=== PATIENT | female | born 1965 | race Caucasian/White ===

== ENCOUNTER 2019-11-22 23:54 | Emergency (ER) | payer MEDICAID ==
[~2019-11-22] VITALS: Ht 162.6 cm; Wt 115.0 kg
[~2019-11-22 23:54] MED LIST: ACET-3068 PO; ARIP2TAB3 PO; CLON-529 PO; GLYB2.5T59 PO; LEVO75TA57 PO; LISI-222 PO; LOVA10TA56 PO; METF500T PO
[2019-11-23 00:14] VITALS: BP 171/118
[2019-11-23] MEDS ORDERED: silver sulfadiazine cream 400gm jar TP STA (00:28)
[2019-11-23] MEDS ORDERED: silver sulfadiazine cream 50gm TP STA (00:40)
[2019-11-23] MEDS ORDERED: CEPH-572 PO (00:40)
== END 2019-11-23 01:14 | disposition home or self-care (01) ==
LOC: ER 23:55
DX: T24.112A Burn of first degree of left thigh, initial encounter (principal); T22.112A Burn of first degree of left forearm, initial encounter; T31.0 Burns involving less than 10% of body surface; I10 Essential (primary) hypertension; E11.9 Type 2 diabetes mellitus without complications; F15.90 Other stimulant use, unspecified, uncomplicated; F11.90 Opioid use, unspecified, uncomplicated; Z60.2 Problems related to living alone; Z88.8 Allergy status to other drugs, medicaments and biological substances; Z79.84 Long term (current) use of oral hypoglycemic drugs; Z79.899 Other long term (current) drug therapy; X08.8XXA Exposure to other specified smoke, fire and flames, initial encounter; Y93.89 Activity, other specified; Y92.89 Other specified places as the place of occurrence of the external cause; Y99.8 Other external cause status
CPT/HCPCS: 16000; 99284

== ENCOUNTER 2021-06-23 11:54 | Emergency (ER) | payer MEDICAID ==
[~2021-06-23] VITALS: Ht 162.6 cm; Wt 102.2 kg
[2021-06-23 12:35] VITALS: BP 117/67
== END 2021-06-23 15:55 | disposition home or self-care (01) ==
LOC: ER 11:55
DX: S00.83XA Contusion of other part of head, initial encounter (principal); M25.531 Pain in right wrist; M25.532 Pain in left wrist; I10 Essential (primary) hypertension; E11.9 Type 2 diabetes mellitus without complications; F15.90 Other stimulant use, unspecified, uncomplicated; F11.90 Opioid use, unspecified, uncomplicated; Z60.2 Problems related to living alone; Z88.8 Allergy status to other drugs, medicaments and biological substances; Z79.899 Other long term (current) drug therapy; W19.XXXA Unspecified fall, initial encounter; Y93.89 Activity, other specified; Y92.89 Other specified places as the place of occurrence of the external cause; Y99.8 Other external cause status
CPT/HCPCS: 73110; 99283

== ENCOUNTER → 2025-10-24 | Emergency (ER) | payer MEDICAID ==
[~2025-10-24] VITALS: Ht 162.6 cm; Wt 97.0 kg
[2025-10-24 21:49] VITALS: BP 131/86; PULSE 81; RESP 16; TEMP 97.2; O2SAT 100
== END | disposition left against medical advice (07) ==
LOC: ER 21:43
DX: R06.02 Shortness of breath (principal); R21 Rash and other nonspecific skin eruption; Z53.21 Procedure and treatment not carried out due to patient leaving prior to being seen by health care provider; Z88.8 Allergy status to other drugs, medicaments and biological substances
CPT/HCPCS: 99281